=== PATIENT | male | born 1980 | race Hispanic/Latino ===

== ENCOUNTER 2024-01-22 19:19 | Emergency (ER) | payer BC, SELFPAY ==
[2024-01-22 19:27] VITALS: BP 154/108
[2024-01-22 19:40] LABS: % Basophils 0.7 % (0-2); % Eosinophils 1.5 % (0-6); % Immature Granulocytes 0.2 % (0-0.5); % Lymphocytes 30.5 % (20.5-51.1); % Monocytes 5.3 % (1.7-9.3); % Neutrophils 61.8 % (42.2-75.2); Absolute Basophils 0.1 10^3/uL (0-0.2); Absolute Eosinophils 0.1 10^3/uL (0-0.7); Absolute Lymphocytes 2.9 10^3/uL (1.2-3.4); Absolute Monocytes 0.5 10^3/uL (0.1-0.6); Absolute Neutrophils 5.8 10^3/uL (1.4-6.5); Hematocrit 41.9 % (39.0-52.0); Hemoglobin 14.3 g/dL (13.0-18.0); Mean Corp Hgb Conc. 34.1 g/dL (33.0-37.0); Mean Corpuscular Hgb 28.7 pg (27.0-31.0); Mean Corpuscular Volume 84.1 fL (80.0-94.0); Mean Platelet Volume 9.1 fL (7.4-10.4); Nucleated Red Blood Cells % 0 % (-); Platelet Count 273 10^3/uL (130-400); Red Blood Cell Count 4.98 10^6/uL (4.70-6.10); Red Cell Dist. Width 13.6 % (11.5-14.5); White Blood Cell Count 9.4 10^3/uL (4.8-10.8)
[2024-01-22 19:59] LABS: ALT (SGPT) 39 U/L (0-50); AST (SGOT) 30 U/L (17-59); Albumin 4.8 g/dl (3.5-5.0); Alkaline Phosphatase 74 U/L (38-126); Blood Urea Nitrogen 16 mg/dl (9-20); Calcium 10.2 mg/dl (8.4-10.2); Carbon Dioxide 27 mmol/L (22-30); Chloride 100 mmol/L (98-107); Glucose 133 mg/dl (70-99); Potassium 4.2 mmol/L (3.5-5.1); Sodium 136 mmol/L (135-145); Total Bilirubin 0.7 mg/dl (0.2-1.3); Total Protein 7.6 g/dl (6.3-8.2); eGFR > 60.00
[2024-01-22 20:05] LABS: Troponin I < 0.012 ng/ml
[2024-01-22 21:03] VITALS: BMI 31.5
[2024-01-22 21:48] VITALS: BP 139/80
[2024-01-22 22:00] VITALS: BP 133/78
[2024-01-22 22:30] VITALS: BP 132/75
[2024-01-22 23:00] VITALS: BP 126/71
[2024-01-22 23:30] VITALS: BP 118/77
[2024-01-23 00:03] LABS: Troponin I < 0.012 ng/ml
--- NOTE | 2024-01-23 00:13 | ED.GENMED ---
History of Present Illness
General
Chief Complaint: Chest Pain
Source: patient
Exam Limitations: none
Time Seen by Provider: 01/22/24 20:37
Nursing documentation reviewed up to this point in time: agreed with
Travel History
Have you had any contact with someone who has COVID-19?: No
Do you have any symptoms of coronavirus? Fever > 100 degrees, chills, cough, shortness of breath, sore throat, loss of taste or smell, muscle aches, or headache?: No
History of Present Illness
History of Present Illness:
43-year-old male h/o HTN, and anxiety
here with chest pressure that starte dthi smornig, more at rest than with exertion
no pleuriti pain, no sob, no weakness
he did have palpitations thepast few weeks felt as extra beats
went to PCP yesterday and had EKG andw was initially told that his ek gwas abnormal but then compared to old was unchanged and so the pcp ordered holter and echo which pt has not had done yet
he says he wasn't having pain/pressure until today
he woke up with it and it was mild
got more signficnat arond 530 tonight
but he doesn't have it any longer
no nauesa, vomiting, diaphoresis
pt has been seen here a few times for yash painand palptiations.
Past History
Past History
ED Past Medical History: HTN
ED Past Surgical History: None
Social History
Tobacco: Non-smoker
Alcohol: Occasional
Personal:
Living: with family
Employment: Employed
Family History
Family History: Hypertension; Negative Early CAD, CAD or Sudden
Review of Systems
Review of Systems
Allergies reviewed?: Yes
All Other Systems: Not applicable
Phy Exam
Physical Exam
Physical Exam:
GENERAL: Alert , in no apparent distress
EYE: pupils equal and reactive
NECK: Supple
ENT: o/p clr, mmm.
CARDIAC: Regular rate and rhythm .no edema
LUNGS: Clear breath sounds bilaterally, no acute respiratory distress, no wheezes/rales/rhonchi
ABDOMEN: Soft, without focal tenderness, no r/g, no cvat, normal bowel sounds
NEUROLOGICAL: Alert and oriented, no focal neuro deficits
SKIN: Warm and dry, skin intact.
MUSCULOSKELETAL: No edema, well perfused. neg hattie's sign
PSYCH: Normal and appropriate interaction.
Scores
Heart Score for Chest Pain Patients
STEMI patient?: No
History: Slightly or Non-Suspicious
ECG: Nonspecific Repolarization
Age: </= 45 years
Risk Factors: 1 or 2 Risk Factors
Troponin: </= Normal Limit
Heart Score for Chest Pain Patients: 2
Heart Score Risk: 2.5% MACE over next 6 weeks
Course
Orders/Labs/Results
Orders:
Orders
01/22/24 19:21
Electrocardiogram (*1) Urgent
Reason for Study: Chest Pain
EKG- Treatment ONCE
01/22/24 19:30
Cardiac Monitoring- Treatment ONCE
IV Insert/Care/Rem.- Treatment PRN
O2 Therapy [RESP] Urgent
Titrate/Wean O2 to maintain O2 sat greater than (%): 90
Special Instructions: Maintain sats >/=90%
Pulse Ox/spot Check [RESP] Urgent
Quantity: 1
Special Instructions: ON ROOM AIR
01/22/24 19:36
Complete Blood Count/With Diff Urgent
Comprehensive Metabolic Panel Urgent
Troponin I Urgent
01/22/24 21:03
EKG- Treatment ONCE
01/22/24 21:04
CR Chest - 2 Views Urgent
Comment:
Reason For Exam: chest pain
01/22/24 22:30
Electrocardiogram (*1) Urgent
Reason for Study: Palpitations
01/22/24 23:27
Troponin I Urgent
Abnormal Lab Results
01/22/24
19:36
Glucose 133 H mg/dl
(70-99)
01/22/24 19:36
01/22/24 19:36
Vital Signs
Initial and Last Documented VS:
Initial Vital Signs
Temp Pulse Resp BP Pulse Ox
97.5 F 100 19 154/108 100
01/22/24 19:27 01/22/24 19:27 01/22/24 19:27 01/22/24 19:27 01/22/24 19:27
Last Documented Vital Signs
Temp Pulse Resp BP Pulse Ox
97.5 F 78 11 139/80 98
01/22/24 19:27 01/22/24 21:49 01/22/24 21:49 01/22/24 21:48 01/22/24 21:49
MDM/Problems Addressed
Differential Diagnosis Includes:
palpitations, acs, chest wall pain, anxiet, gerd
MDM/Problems Addressed:
43 y/o M with ho htn
here with chest pressure thismorning
papitations x 2 weeks
no syncope
has rx for holter and echo
pressure in chest seemed intermittnet, worse with lyin down and better with exertion making it unlikely to be anginal
he had no pleuritic pain
the pain got worse at530 and was moderate
mow resolved
on exam, no signs of irregularity to rhythm
ekg nsr unchanged from previous
trop x 2 neg
electrolytes normal
chest xray indep reviewed by me and neg
d/c home with cards/holter f/u
*Critical Care Note
Total Time (30-74mins, 75-104mins- exclusive of procedures): Not Applicable
ED Attending Note
-
Portions of this chart may have been created with voice recognition software.� Occasional wrong word or��sound alike� substitutions may have occurred due to the inherent limitations of voice recognition software.
Discharge Plan
Departure
Patient Disposition: Home (Routine Discharge)
Date of Disposition: 01/23/24
Time of Disposition: 00:21
Patient with high blood pressure during this ER visit?: No
Covid-19: Not Applicable
Discharge Problem:
Chest pain, Palpitations
Instructions: Chest Pain That Is Not Caused by the Heart (DC), Palpitations (DC)
Prescriptions:
No Action
bupropion HCl 150 mg Tablet Sustained-Release 12 Hr
150 mg PO BID
albuterol 90 mcg/actuation Aerosol
INHALATION PRN (Reason: sob)
lisinopril 40 mg Tablet
40 mg PO DAILY
Referrals:
Ruy Almonte MD [Family Provider] - Follow up in 2-3 days
Activity Restrictions/Additional Instructions:
we are not sure the cause of your chest discomfort but we did EKGs and troponin tests which are negative and showed no signs of a heart attack. Your palpitations were not visualized on your EKG or cardiac monitoring but you should wear the Holter
monitor as prescribed by your doctor. 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 Return for worsening symptoms like exertional chest pain, passing out, shortness of breath or any concerns
Interventions
Interventions:
*Risk Screen - Suicide Last Done: 01/22/24 19:27
*General Assessment Last Done: 01/22/24 19:27
*Neglect/Abuse Screening Last Done: 01/22/24 19:27
ED- Fall Risk Assessment Last Done: 01/22/24 21:03
*ED COVID-19 Vaccine History Last Done: 01/22/24 19:27
ED- Cardiac Assessment Last Done: 01/22/24 21:03
Discharge Date and Time
Print Language: AUSTRALIAN
== END 2024-01-23 00:42 | disposition home or self-care (01) ==
LOC: EMR 19:19
PROVIDERS: Emergency Medicine; Physician Assistant; EMERGENCY PHYSICIAN Emergency Medicine; FAMILY PHYSICIAN Family Medicine
DX: R07.89 Other chest pain (principal)
CPT/HCPCS: 99283; 71046; 80053; 84484; 85025; 93005

== ENCOUNTER → 2024-02-06 07:02 | Outpatient (REF) | payer BC, SELFPAY | LOC: HWRCS 07:02 | PROVIDERS: ATTENDING PHYSICIAN Family Medicine | DX: R94.31 Abnormal electrocardiogram [ECG] [EKG] (principal) | CPT/HCPCS: 93306 ==

== ENCOUNTER → 2024-02-07 09:40 | Outpatient (REF) | payer BC, SELFPAY | LOC: RCS 09:40 | PROVIDERS: ATTENDING PHYSICIAN Family Medicine | DX: R00.2 Palpitations (principal); R94.31 Abnormal electrocardiogram [ECG] [EKG] | CPT/HCPCS: 93225; 93226 ==

== ENCOUNTER 2024-02-19 20:16 | Emergency (ER) | payer BC, SELFPAY ==
[2024-02-19 20:16] VITALS: BMI 31.8
[2024-02-19 20:25] VITALS: BP 155/85
[2024-02-19 20:42] LABS: % Basophils 0.7 % (0-2); % Eosinophils 2.3 % (0-6); % Immature Granulocytes 0.2 % (0-0.5); % Lymphocytes 28.4 % (20.5-51.1); % Neutrophils 61.4 % (42.2-75.2); Absolute Basophils 0.1 10^3/uL (0-0.2); Absolute Eosinophils 0.2 10^3/uL (0-0.7); Absolute Monocytes 0.7 10^3/uL (0.1-0.6); Absolute Neutrophils 6.4 10^3/uL (1.4-6.5); Hematocrit 42.5 % (39.0-52.0); Hemoglobin 14.6 g/dL (13.0-18.0); Mean Corp Hgb Conc. 34.4 g/dL (33.0-37.0); Mean Corpuscular Hgb 28.4 pg (27.0-31.0); Mean Corpuscular Volume 82.7 fL (80.0-94.0); Nucleated Red Blood Cells % 0 % (-); Platelet Count 254 10^3/uL (130-400); Red Blood Cell Count 5.14 10^6/uL (4.70-6.10); Red Cell Dist. Width 13.3 % (11.5-14.5); White Blood Cell Count 10.4 10^3/uL (4.8-10.8)
[2024-02-19 20:58] LABS: ALT (SGPT) 38 U/L (0-50); AST (SGOT) 29 U/L (17-59); Albumin 4.6 g/dl (3.5-5.0); Alkaline Phosphatase 68 U/L (38-126); Blood Urea Nitrogen 20 mg/dl (9-20); Calcium 9.9 mg/dl (8.4-10.2); Carbon Dioxide 24 mmol/L (22-30); Chloride 101 mmol/L (98-107); Glucose 104 mg/dl (70-99); Potassium 4.1 mmol/L (3.5-5.1); Sodium 136 mmol/L (135-145); Total Bilirubin 0.5 mg/dl (0.2-1.3); Total Protein 7.4 g/dl (6.3-8.2); eGFR > 60.00
[2024-02-19 21:07] LABS: Troponin I < 0.012 ng/ml
[2024-02-19 21:14] VITALS: BP 133/79
[2024-02-19 22:00] VITALS: BP 112/72
--- NOTE | 2024-02-19 22:04 | ED.GENMED ---
History of Present Illness
General
Chief Complaint: Chest Pain
Source: patient
Exam Limitations: none
Time Seen by Provider: 02/19/24 21:09
Travel History
Have you had any contact with someone who has COVID-19?: No
Do you have any symptoms of coronavirus? Fever > 100 degrees, chills, cough, shortness of breath, sore throat, loss of taste or smell, muscle aches, or headache?: No
History of Present Illness
History of Present Illness:
43-year-old male presents complaining of sharp stabbing right-sided chest pain ongoing but worse today. 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 In the interim he has had an echocardiogram and
a Holter monitor. He said he was diagnosed with left ventricular hypertrophy on the echocardiogram. He presented today for increased severity of symptoms. No recent travel or surgery. No leg swelling or calf pain. No hormone replacement
therapy. He does not smoke. History of hypertension
Past History
Past History
ED Past Medical History: HTN
ED Past Surgical History: None
Social History
Tobacco: Non-smoker
Alcohol: Occasional
Personal:
Living: with family
Employment: Employed
Family History
Family History: Hypertension; Negative Early CAD, CAD or Sudden
Phy Exam
Physical Exam
Physical Exam:
General: Well-appearing male no acute respiratory distress
HEENT: Normocephalic atraumatic neck is supple
Heart: Regular rate and rhythm no murmurs
Lungs: Clear no wheeze or rales
Abdomen is soft nontender nondistended guarding rebound normal bowel sounds
Extremities: No cyanosis
Scores
Heart Score for Chest Pain Patients
STEMI patient?: No
History: Slightly or Non-Suspicious
ECG: Normal
Age: </= 45 years
Risk Factors: 1 or 2 Risk Factors
Troponin: </= Normal Limit
Heart Score for Chest Pain Patients: 1
Heart Score Risk: 2.5% MACE over next 6 weeks
Course
Orders/Labs/Results
Orders:
Orders
02/19/24 20:17
Electrocardiogram (*1) Urgent
Reason for Study: Chest Pain
EKG- Treatment ONCE
02/19/24 20:36
Complete Blood Count/With Diff Urgent
Comprehensive Metabolic Panel Urgent
Troponin I Urgent
02/19/24 21:35
CT Chest Pe Study Urgent
Comment:
Reason For Exam: chest pain
Abnormal Lab Results
02/19/24
20:36
Absolute Monos (auto) 0.7 H 10^3/uL
(0.1-0.6)
Glucose 104 H mg/dl
(70-99)
02/19/24 20:36
02/19/24 20:36
Vital Signs
Initial and Last Documented VS:
Initial Vital Signs
Temp Pulse Resp BP Pulse Ox
98.0 F 81 18 155/85 97
02/19/24 20:25 02/19/24 20:25 02/19/24 20:25 02/19/24 20:25 02/19/24 20:25
Last Documented Vital Signs
Temp Pulse Resp BP Pulse Ox
98.0 F 73 14 112/72 93
02/19/24 20:25 02/19/24 22:15 02/19/24 22:15 02/19/24 22:00 02/19/24 22:15
MDM/Problems Addressed
Differential Diagnosis Includes:
Chest pain. Consider ACS versus GERD versus PE or chest wall discomfort.
Reviewed prior records. Troponin here is undetectable. Given consistency of symptoms and duration of symptoms do not suspect ACS. Will check for PE with PE study
*Critical Care Note
Total Time (30-74mins, 75-104mins- exclusive of procedures): Not Applicable
Update Note
Update Note:
CT of the chest PE protocol negative for pulmonary embolism or other acute concerning findings. Patient reassured. He has an appoint with cardiology in the next several weeks I advised to keep. No indication for admission to the hospital. Stable
for discharge
ED Attending Note
-
Portions of this chart may have been created with voice recognition software.� Occasional wrong word or��sound alike� substitutions may have occurred due to the inherent limitations of voice recognition software.
Discharge Plan
Departure
Patient Disposition: Home (Routine Discharge)
Date of Disposition: 02/19/24
Time of Disposition: 23:12
Patient with high blood pressure during this ER visit?: No
Discharge Problem:
Chest pain
Instructions: Chest Pain DCA Follow Up
Prescriptions:
No Action
bupropion HCl 150 mg Tablet Sustained-Release 12 Hr
150 mg PO BID
albuterol 90 mcg/actuation Aerosol
INHALATION PRN (Reason: sob)
lisinopril 40 mg Tablet
40 mg PO DAILY
Referrals:
Yesy Hidalgo MD [Family Provider] -
Activity Restrictions/Additional Instructions:
Please continue current medicine. Please follow-up with cardiology. Return if needed otherwise
Interventions
Interventions:
ED- Fall Risk Assessment Last Done: 02/19/24 22:02
ED- Cardiac Assessment Last Done: 02/19/24 22:02
Discharge Date and Time
Print Language: UPPER SORBIAN
[2024-02-19 23:38] VITALS: BP 136/87
== END 2024-02-19 23:39 | disposition home or self-care (01) ==
LOC: EMR 20:16
PROVIDERS: Emergency Medicine; EMERGENCY PHYSICIAN Student in an Organized Health Care Education/Training Program; FAMILY PHYSICIAN Family Medicine
DX: R07.89 Other chest pain (principal); I51.7 Cardiomegaly; I10 Essential (primary) hypertension; Z88.8 Allergy status to other drugs, medicaments and biological substances; Z91.013 Allergy to seafood
CPT/HCPCS: 99285; 71275; 80053; 84484; 85025; 93005; Q9967

== ENCOUNTER 2024-07-24 21:11 | Emergency (ER) | payer BC, SELFPAY ==
[2024-07-24 21:20] VITALS: BP 144/85
[2024-07-24 21:39] LABS: % Basophils 0.5 % (0-2); % Eosinophils 1.6 % (0-6); % Immature Granulocytes 0.4 % (0-0.5); % Lymphocytes 27.8 % (20.5-51.1); % Monocytes 5.7 % (1.7-9.3); Absolute Basophils 0.1 10^3/uL (0-0.2); Absolute Eosinophils 0.2 10^3/uL (0-0.7); Absolute Lymphocytes 3.1 10^3/uL (1.2-3.4); Absolute Monocytes 0.6 10^3/uL (0.1-0.6); Absolute Neutrophils 7.1 10^3/uL (1.4-6.5); Hematocrit 41.4 % (39.0-52.0); Hemoglobin 14.2 g/dL (13.0-18.0); Mean Corp Hgb Conc. 34.3 g/dL (33.0-37.0); Mean Corpuscular Hgb 28.3 pg (27.0-31.0); Mean Corpuscular Volume 82.5 fL (80.0-94.0); Mean Platelet Volume 8.9 fL (7.4-10.4); Nucleated Red Blood Cells % 0 % (-); Platelet Count 262 10^3/uL (130-400); Red Blood Cell Count 5.02 10^6/uL (4.70-6.10); Red Cell Dist. Width 13.2 % (11.5-14.5)
[2024-07-24 21:56] LABS: ALT (SGPT) 37 U/L (0-50); AST (SGOT) 30 U/L (17-59); Albumin 4.7 g/dl (3.5-5.0); Alkaline Phosphatase 87 U/L (38-126); Blood Urea Nitrogen 29 mg/dl (9-20); Calcium 9.8 mg/dl (8.4-10.2); Carbon Dioxide 25 mmol/L (22-30); Chloride 101 mmol/L (98-107); Glucose 149 mg/dl (70-99); Potassium 4.1 mmol/L (3.5-5.1); Sodium 140 mmol/L (135-145); Total Bilirubin 0.3 mg/dl (0.2-1.3); Total Protein 7.3 g/dl (6.3-8.2); eGFR > 60.00
[2024-07-24 22:27] LABS: TSH Reflex To Free T4 1.27 uIU/ml (0.47-4.68)
--- NOTE | 2024-07-24 23:59 | ED.GENMED ---
History of Present Illness
<Kesha Graves MD, Resident - Last Filed: 07/25/24 02:29>
General
Chief Complaint: Heart Rate Problem
Source: patient
Exam Limitations: none
Time Seen by Provider: 07/25/24 00:00
Nursing documentation reviewed up to this point in time: agreed with
History of Present Illness
History of Present Illness:
Mr. Diez is a 43-year-old male with past medical history significant for hypertension and anxiety presents to the ER for increased heart rate and palpitations. After eating his dinner and does not he was sitting and drinking his 1 bottle of beer
and he suddenly started experiencing palpitations that were accompanied by diffuse diaphoresis, flushing, nausea, chest pressure-like sensation, and mild dizziness. On further inquiry he states that he was intermittently sweating all day today,
however all his symptoms usually come together as a single episode. His episodes last for few hours and they come at a frequency of few times a month. His chest pressure-like sensation does not have a pain character to it, it is nonradiating and
is intermittent. His episodes are also associated with shortness of breath which is intermittent as well
He denies having orthopnea, PND, SOB on exertion.
He had similar episodes in the past during which he had a severe chest pain once and was worked up 2-3 times by cardiology for coronary artery disease. All his workup for his heart turned out to be within normal limits.
He denies having lightheadedness, near syncopal or syncopal episodes, weakness or altered sensation in limbs, bowel or bladder dysfunction.
Past History
<Kesha Graves MD, Resident - Last Filed: 07/25/24 02:29>
Past History
ED Past Medical History: HTN
ED Past Surgical History: None
Patient has exhibited threatening behavior?: No
Social History
Tobacco: Non-smoker
Alcohol: Occasional
Drug: None
Personal:
Living: with family
Employment: Employed
Family History
Family History: Hypertension; Negative Early CAD, CAD or Sudden
Review of Systems
<Kesha Graves MD, Resident - Last Filed: 07/25/24 02:29>
Review of Systems
Allergies reviewed?: Yes
Constitutional: Reports fatigue; Denies fever, night sweats or chills
Respiratory: Reports trouble breathing; Denies no symptoms or hemoptysis
Cardiac: Reports chest pain, diaphoresis and palpitations; Denies syncope
ABD/GI: Reports nausea
: Reports no symptoms
Musculoskeletal: Reports no symptoms
Skin: Reports no symptoms
Neurological: Reports dizzy; Denies headache, weakness or numbness
Endocrine: Reports no symptoms
Hematologic/Lymphatic: Reports no symptoms
Psychiatric: Reports no symptoms
Phy Exam
<Kesha Graves MD, Resident - Last Filed: 07/25/24 02:29>
General Physical Exam
General Presentation: well appearing and no apparent distress
General Skin: warm
General Habitus: normal
General Mental: alert
General Hydration: appears well hydrated
Eye Exam
Eye Exam: PERRL and EOMI
Cardiovascular Exam
Cardiovascular Exam: regular rate/rhythm, no edema, no gallop, no JVD, no murmur and tachycardia
Heart Sounds: normal
Pulmonary Exam
Pulmonary Exam: lungs clear, no respiratory distress, no rales, no crackles and no rhonchi
Gastrointestinal Exam
Gastrointestinal Exam: normal bowel sounds, non tender, soft and non distended
Neurological Exam
Neurological Exam: alert, no motor deficits and speech normal
Skin Exam
Skin Exam: normal color and warm/dry
Psychiatric Exam
Psychiatric Exam: normal mood/affect
Sepsis
<Kesha Graves MD, Resident - Last Filed: 07/25/24 02:29>
Sepsis Screening
Sepsis Assessment: Sepsis Ruled Out
Sepsis Screen
Sepsis Screen: Sepsis Ruled Out
Date: 07/25/24
Time: 02:29
<Cecilia Michael, DO - Last Filed: 07/25/24 02:44>
Sepsis Screen
Sepsis Screen: Sepsis Ruled Out
Date: 07/25/24
Time: 02:42
Course
<Kesha Graves MD, Resident - Last Filed: 07/25/24 02:29>
Orders/Labs/Results
Orders:
Orders
07/24/24 21:13
ECG [Electrocardiogram (*1)] Urgent
Reason for Study: Tachycardia
Cardiology Consult: Unknown
EKG- Treatment ONCE
07/24/24 21:28
Complete Blood Count/With Diff Urgent
Comprehensive Metabolic Panel Urgent
TSH Reflex To Free T4 Urgent
07/25/24 00:22
0.9% Sodium Chloride 1000 ml [Nss] 1,500 ml IV BOLUS
07/25/24 01:02
Troponin I Urgent
Abnormal Lab Results
07/24/24
21:28
WBC 11.0 H 10^3/uL
(4.8-10.8)
Absolute Neuts (auto) 7.1 H 10^3/uL
(1.4-6.5)
BUN 29 H mg/dl
(9-20)
Glucose 149 H mg/dl
(70-99)
07/24/24 21:28
07/24/24 21:28
Vital Signs
Initial and Last Documented VS:
Initial Vital Signs
Temp Pulse Resp BP Pulse Ox
98.2 F 117 18 144/85 96
07/24/24 21:20 07/24/24 21:20 07/24/24 21:20 07/24/24 21:20 07/24/24 21:20
Last Documented Vital Signs
Temp Pulse Resp BP Pulse Ox
98.2 F 117 18 144/85 97
07/24/24 21:20 07/24/24 21:20 07/24/24 21:20 07/24/24 21:20 07/24/24 23:27
Comment
Comment:
During patient's recent hospitalization and workup for chest pain in January 2024 and incidental finding of 3.5 cm of right adrenal adenoma noted.
In the setting of his spectrum of symptoms, and cardiac workup being negative suspect if patient has pheochromocytoma based upon the adrenal incidentaloma identified.
Recommend outpatient workup for pheochromocytoma.
<Cecilia Michael, DO - Last Filed: 07/25/24 02:44>
Orders/Labs/Results
Orders:
Orders
07/24/24 21:13
ECG [Electrocardiogram (*1)] Urgent
Reason for Study: Tachycardia
Cardiology Consult: Unknown
EKG- Treatment ONCE
07/24/24 21:28
Complete Blood Count/With Diff Urgent
Comprehensive Metabolic Panel Urgent
TSH Reflex To Free T4 Urgent
07/25/24 00:22
0.9% Sodium Chloride 1000 ml [Nss] 1,500 ml IV BOLUS
07/25/24 01:02
Troponin I Urgent
Abnormal Lab Results
07/24/24
21:28
WBC 11.0 H 10^3/uL
(4.8-10.8)
Absolute Neuts (auto) 7.1 H 10^3/uL
(1.4-6.5)
BUN 29 H mg/dl
(9-20)
Glucose 149 H mg/dl
(70-99)
07/24/24 21:28
07/24/24 21:28
Vital Signs
Initial and Last Documented VS:
Initial Vital Signs
Temp Pulse Resp BP Pulse Ox
98.2 F 117 18 144/85 96
07/24/24 21:20 07/24/24 21:20 07/24/24 21:20 07/24/24 21:20 07/24/24 21:20
Last Documented Vital Signs
Temp Pulse Resp BP Pulse Ox
98.2 F 117 18 144/85 97
07/24/24 21:20 07/24/24 21:20 07/24/24 21:20 07/24/24 21:20 07/24/24 23:27
<Kesha Graves MD, Resident - Last Filed: 07/25/24 02:29>
MDM/Problems Addressed
Differential Diagnosis Includes:
Dehydration versus adrenal incidentaloma versus ID
MDM/Problems Addressed:
IV fluids ordered, troponins ordered to assess for CAD/ID
Chronic conditions affecting care: HTN
<Kesha Graves MD, Resident - Last Filed: 07/25/24 02:29>
*Radiology
Radiology exam reviewed: radiology read reviewed
*Pulse Oximetry
Patient hypoxic: no
*EKG
Interpreted by ED Provider?: Yes
EKG Intrepretation Date: 07/24/24
EKG Intrepretation Time: 21:13
Interpretation: abnormal
Comparison EKG: changes noted
Heart Rate: 117
Rate: tachycardiac
Rhythm: sinus
[place]: left axis deviation
Interval: normal interval, normal QT interval and normal IN interval
QRS Pattern: normal QRS
Ischemia: no ischemia
*Director Radiation Oncology Interpretation
Rate: Director Radiation Oncology- N/A
Interpretation: normal
Rhythm: sinus
*Critical Care Note
Total Time (30-74mins, 75-104mins- exclusive of procedures): Not Applicable
Data Reviewed
Review of Other/Old Records Reveals: Labs, Records and Radiology Studies
Source: patient and records
<Kesha Graves MD, Resident - Last Filed: 07/25/24 02:29>
Comment
Comment:
Minimal.
<Kesha Graves MD, Resident - Last Filed: 07/25/24 02:29>
Update Note
Update Note:
Previous imaging-
Chest CT-02/19/2024- No CT evidence for pulmonary embolism.
2. No aortic dissection.
3. No acute process in the lungs.
4. Probable 3.5 cm adenoma in the right adrenal gland, however incompletely imaged on this exam. Consider nonurgent dedicated adrenal gland imaging with CT or MRI.
Echocardiogram-02/06/2024 -
Normal left ventricular size and systolic function. LV ejection fraction is 65-
70%.
Mild concentric left ventricular hypertrophy.
No significant valvular disease.
No prior study available for comparison.
ED Attending Note
<Kesha Graves MD, Resident - Last Filed: 07/25/24 02:29>
-
Portions of this chart may have been created with voice recognition software.� Occasional wrong word or��sound alike� substitutions may have occurred due to the inherent limitations of voice recognition software.
<Cecilia Michael DO - Last Filed: 07/25/24 02:44>
ED Attending Note
Patient seen and examined by attending physician: Yes
I performed a history and physical exam of patient and discussed management with resident, I reviewed resident's note and agree with documented findings and plan of care.: Yes
ED Attending Note:
This is a 43-year-old gentleman with history of hypertension who presents with complaints of palpitations, diaphoresis, dizziness, nausea, feeling anxious and panicky as well as mild chest discomfort. Episode lasted perhaps 45 minutes. He has had
similar sporadic episodes generally every few months and has been evaluated in this ED on previous occasions for similar complaints with thus far unremarkable cardiac as well as pulmonary evaluations including CT of the chest/PE study January of this
year that was unremarkable save for incidental adrenal adenoma.
He has been following with cardiology and underwent unremarkable stress echo January 2023. Holter monitor January 2024 showing few PACs, rare PVCs otherwise unremarkable.
Currently asymptomatic, tachycardia has resolved but he has been monitoring his heart rate, currently at 90-100 which is somewhat elevated for him. No further palpitations nor chest discomfort.
Labs thus far unremarkable save for mildly elevated BUN and creatinine, trending up from previous results. He does admit to working outdoors today, thought that he was keeping up with his fluids but admits that he may not have been drinking as
much. No recent GI illness.
43-year-old overweight gentleman appears his stated age, awake and alert, pleasant, appears in no acute distress.
Heart is regular rate and rhythm at 96. No murmur no rub.
Lungs are clear to auscultation. Respirations are easy nonlabored.
Concern for tachy-arrhythmia, dehydration, ACS other consideration is pheochromocytoma.
Will check troponin. Will initiate oral fluids. Continue to monitor.
07/25/2024 0220 AM
Troponin is negative.
Tachycardia has resolved.
Tolerating oral fluids well.
Will discharge to home with recommendations for follow-up with PCP as well as cardiology. Could consider outpatient workup for pheochromocytoma.
Discharge Plan
Departure
Patient Disposition: Home (Routine Discharge)
Date of Disposition: 07/25/24
Time of Disposition: 02:17
Patient with high blood pressure during this ER visit?: Yes
Condition: Good
Discharge Problem:
Heart palpitations, History of palpitations, Adrenal incidentaloma
Instructions: Palpitations (DC), BLOOD PRESSURE
Prescriptions:
No Action
bupropion HCl 150 mg Tablet Sustained-Release 12 Hr
150 mg PO BID
albuterol 90 mcg/actuation Aerosol
INHALATION PRN (Reason: sob)
lisinopril 40 mg Tablet
40 mg PO DAILY
Referrals:
Geeta Koenig NP [Family Provider] - (within 1 week.)
Interventions
Interventions:
*Risk Screen - Suicide Last Done: 07/24/24 21:23
*General Assessment Last Done: 07/24/24 23:27
*Neglect/Abuse Screening Last Done: 07/24/24 21:23
ED- Fall Risk Assessment Last Done: 07/24/24 23:27
*ED COVID-19 Vaccine History Last Done: 07/24/24 23:27
ED- Cardiac Assessment Last Done: 07/24/24 23:27
ED- Pulmonary Assessment Last Done: 07/24/24 23:27
Discharge Date and Time
Print Language: NEPALESE
[2024-07-25 01:44] LABS: Troponin I < 0.012 ng/ml
[2024-07-25 02:00] VITALS: BP 135/88
[2024-07-25 03:00] VITALS: BP 132/78
== END 2024-07-25 03:29 | disposition home or self-care (01) ==
LOC: EMR 21:11
PROVIDERS: Emergency Medicine; Student in an Organized Health Care Education/Training Program; EMERGENCY PHYSICIAN Emergency Medicine; FAMILY PHYSICIAN Internal Medicine
DX: R00.2 Palpitations (principal); R07.89 Other chest pain; R00.0 Tachycardia, unspecified; R42 Dizziness and giddiness; R11.0 Nausea; R53.83 Other fatigue; R06.02 Shortness of breath; R61 Generalized hyperhidrosis; D35.01 Benign neoplasm of right adrenal gland; I10 Essential (primary) hypertension; K76.0 Fatty (change of) liver, not elsewhere classified; J45.909 Unspecified asthma, uncomplicated; Z88.8 Allergy status to other drugs, medicaments and biological substances; Z91.013 Allergy to seafood; Z86.16 Personal history of COVID-19
CPT/HCPCS: 99284; 80053; 84443; 84484; 85025; 93005

== ENCOUNTER → 2024-09-17 07:35 | Outpatient (REF) | payer BC, SELFPAY | LOC: PAVMRI 07:35 | PROVIDERS: ATTENDING PHYSICIAN Physician Assistant | DX: E27.8 Other specified disorders of adrenal gland (principal) | CPT/HCPCS: 74183; A9575 ==

== ENCOUNTER 2024-11-05 13:44 | Emergency (ER) | payer BC, SELFPAY ==
[2024-11-05 13:49] VITALS: BP 158/84
[2024-11-05 14:25] LABS: % Basophils 0.6 % (0-2); % Eosinophils 0.7 % (0-6); % Immature Granulocytes 0.1 % (0-0.5); % Lymphocytes 30.2 % (20.5-51.1); % Monocytes 4.6 % (1.7-9.3); % Neutrophils 63.8 % (42.2-75.2); Absolute Basophils 0.1 10^3/uL (0-0.2); Absolute Eosinophils 0.1 10^3/uL (0-0.7); Absolute Lymphocytes 2.4 10^3/uL (1.2-3.4); Absolute Monocytes 0.4 10^3/uL (0.1-0.6); Absolute Neutrophils 5.1 10^3/uL (1.4-6.5); Hematocrit 46.5 % (39.0-52.0); Hemoglobin 15.6 g/dL (13.0-18.0); Mean Corp Hgb Conc. 33.5 g/dL (33.0-37.0); Mean Corpuscular Hgb 28.5 pg (27.0-31.0); Mean Corpuscular Volume 84.9 fL (80.0-94.0); Mean Platelet Volume 9.3 fL (7.4-10.4); Nucleated Red Blood Cells % 0 % (-); Platelet Count 270 10^3/uL (130-400); Red Blood Cell Count 5.48 10^6/uL (4.70-6.10); Red Cell Dist. Width 13.3 % (11.5-14.5)
[2024-11-05 14:41] LABS: ALT (SGPT) 46 U/L (0-50); AST (SGOT) 34 U/L (17-59); Albumin 4.6 g/dl (3.5-5.0); Alkaline Phosphatase 78 U/L (38-126); Blood Urea Nitrogen 16 mg/dl (9-20); Carbon Dioxide 25 mmol/L (22-30); Chloride 100 mmol/L (98-107); Glucose 143 mg/dl (70-99); Potassium 4.2 mmol/L (3.5-5.1); Total Bilirubin 0.6 mg/dl (0.2-1.3); Total Protein 7.7 g/dl (6.3-8.2); eGFR > 60.00
[2024-11-05 14:48] LABS: Troponin I < 0.012 ng/ml
[2024-11-05 15:00] LABS: Sodium 134 mmol/L (135-145)
[2024-11-05 15:10] LABS: TSH 0.51 uIU/ml (0.47-4.68)
[2024-11-05 15:50] VITALS: BP 139/89
--- NOTE | 2024-11-13 16:09 | ED.GENMED ---
History of Present Illness
General
Chief Complaint: Chest Pain
Source: patient
Exam Limitations: none
Time Seen by Provider: 11/05/24 15:19
Nursing documentation reviewed up to this point in time: agreed with
History of Present Illness
History of Present Illness:
44 y/o M
h/o HTN, fattgy liver, anxiet, asthma
here with chest thumping feeling x 2 episodes, strong extra beat that took his breah away
has had many visits for cp before similar sounding and i have seen him for these
he has had cardiology f/u and w/u
he has lisinopril for bp control
pt gets axious when he feels tehse extra beats
he no longer has them now
no sob, syncope, fever, vomiting, exertional dyspnea,
Past History
Past History
ED Past Medical History: HTN
ED Past Surgical History: None
Patient has exhibited threatening behavior?: No
Social History
Tobacco: Non-smoker
Alcohol: Occasional
Drug: None
Personal:
Living: with family
Employment: Employed
Family History
Family History: Hypertension; Negative Early CAD, CAD or Sudden
Review of Systems
Review of Systems
Allergies reviewed?: Yes
All Other Systems: Not applicable
Phy Exam
Physical Exam
Physical Exam:
GENERAL: Alert , in no apparent distress; mild anxiety
EYE: pupils equal and reactive
NECK: Supple
ENT: o/p clr, mmm.
CARDIAC: Regular rate and rhythm .
LUNGS: Clear breath sounds bilaterally, no acute respiratory distress, no wheezes/rales/rhonchi
ABDOMEN: Soft, without focal tenderness, no r/g, no cvat, normal bowel sounds
NEUROLOGICAL: Alert and oriented, no focal neuro deficits
SKIN: Warm and dry, skin intact.
MUSCULOSKELETAL: No edema, well perfused. neg hattie's sign
PSYCH: anxiety
Scores
Heart Score for Chest Pain Patients
STEMI patient?: No
History: Slightly or Non-Suspicious
ECG: Normal
Age: </= 45 years
Risk Factors: 1 or 2 Risk Factors
Troponin: </= Normal Limit
Heart Score for Chest Pain Patients: 1
Heart Score Risk: 2.5% MACE over next 6 weeks
Course
Orders/Labs/Results
Orders:
Orders
11/05/24 13:45
Electrocardiogram (*1) Urgent
Reason for Study: Palpitations
EKG- Treatment ONCE
11/05/24 13:58
Complete Blood Count/With Diff Urgent
Comprehensive Metabolic Panel Urgent
TSH Urgent
Troponin I Urgent
Abnormal Lab Results
11/05/24
13:58
Sodium 134 L mmol/L
(135-145)
Glucose 143 H mg/dl
(70-99)
11/05/24 13:58
11/05/24 13:58
Vital Signs
Initial and Last Documented VS:
Initial Vital Signs
Temp Pulse Resp BP Pulse Ox
37.1 C 99 16 158/84 100
11/05/24 13:49 11/05/24 13:49 11/05/24 13:49 11/05/24 13:49 11/05/24 13:49
Last Documented Vital Signs
Temp Pulse Resp BP Pulse Ox
37.1 C 99 16 139/89 100
11/05/24 13:49 11/05/24 13:49 11/05/24 13:49 11/05/24 15:50 11/05/24 13:49
MDM/Problems Addressed
Differential Diagnosis Includes:
palptiations, pvcs, anxiety
MDM/Problems Addressed:
44 y/o M
htn
here with palpitations 2 strong extra beats today
anxious
has had this before
no pleuritic pain or sob
i have seen pt for these symtpmos prevoiusly
ekg nonischemic nsr 99 bpm, normal axis
perc neg
trop neg
tsh normal
lytes normal
d/c home
*Critical Care Note
Total Time (30-74mins, 75-104mins- exclusive of procedures): Not Applicable
ED Attending Note
-
Portions of this chart may have been created with voice recognition software.� Occasional wrong word or��sound alike� substitutions may have occurred due to the inherent limitations of voice recognition software.
Discharge Plan
Departure
Patient Disposition: Home (Routine Discharge)
Date of Disposition: 11/05/24
Time of Disposition: 15:51
Patient with high blood pressure during this ER visit?: No
Condition: Fair
Covid-19: Not Applicable
Discharge Problem:
Palpitations
Instructions: Palpitations ED
Prescriptions:
No Action
bupropion HCl 150 mg Tablet Sustained-Release 12 Hr
150 mg PO BID
albuterol 90 mcg/actuation Aerosol
INHALATION PRN (Reason: sob)
lisinopril 40 mg Tablet
40 mg PO DAILY
Activity Restrictions/Additional Instructions:
YOUR CHEST DISCOMFORT SOUND LIKE PALPITAITONS WHICH CAN BE DISTRESSING
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
YOU HAD NO SIGN OF HEART ATTACK
FOLLOW UP WIHT YOUR FAMILYDOCTOR
AND YOUR A R COLLECTIONS REP
RETURN FOR ANY CONCERNS, PASSING OUT, PERSISTENT CHEST PAIN OR ANY CONCERNS.
Interventions
Interventions:
*Risk Screen - Suicide Last Done: 11/05/24 13:49
*General Assessment Last Done: 11/05/24 15:50
*Neglect/Abuse Screening Last Done: 11/05/24 13:49
*ED COVID-19 Vaccine History Last Done: 11/05/24 15:50
*Nursing Disposition Last Done: 11/05/24 16:04
ED- Cardiac Assessment Last Done: 11/05/24 15:51
Discharge Date and Time
Discharge Date/Time: 11/05/24 16:05
Print Language: CHINESE
== END 2024-11-05 16:05 | disposition home or self-care (01) ==
LOC: EMR 13:44
PROVIDERS: Emergency Medicine; EMERGENCY PHYSICIAN Emergency Medicine; FAMILY PHYSICIAN Physician Assistant
DX: R00.2 Palpitations (principal); I10 Essential (primary) hypertension; J45.909 Unspecified asthma, uncomplicated
CPT/HCPCS: 99284; 80053; 84443; 84484; 85025; 93005

== ENCOUNTER → 2024-11-18 09:14 | Outpatient (REF) | payer BC, SELFPAY | LOC: HWRAD 09:14 | PROVIDERS: ATTENDING PHYSICIAN Nurse Practitioner Family | DX: M54.2 Cervicalgia (principal) | CPT/HCPCS: 72050 ==